=== PATIENT | male | born 1945 | race Caucasian/White ===

== ENCOUNTER 2017-03-24 13:40 | Emergency (ER) | payer MEDICARE, OTHER ==
[~2017-03-24] VITALS: Ht 190.5 cm; Wt 84.9 kg
[2017-03-24 13:42] VITALS: TEMP 97.6
[2017-03-24 14:39] LABS: MEAN CELL VOLUME 89 fl (80.0-100.0); MEAN CORPUSCULAR HGB CONC 36 g/dl (33.0-37.0); MEAN PLATELET VOLUME 13.1 fl (7.4-10.4); PLATELET COUNT 169 K/mm3 (130-400); REDCELL DISTRIBUTION WIDTH-CV 16.8 % (11.5-14.5)
[2017-03-24] MEDS ORDERED: NORVASC 10MG10 MG PO (14:39)
[2017-03-24] MEDS ORDERED: DYAZIDE 25 MG-31 CAP PO (14:39)
[2017-03-24 14:43] LABS: HEMATOCRIT 14.3 % (42.0-52.0); HEMOGLOBIN 5.1 g/dl (13.5-18.0); MEAN CORPUSCULAR HEMOGLOBIN 32 pg (27.0-31.0); WHITE BLOOD COUNT 202.7 K/mm3 (4.8-10.8)
[2017-03-24 14:46] LABS: ADJUSTED CALCIUM 9.5 mg/dL (8.4-10.2); ALBUMIN 3.5 gm/dL (3.5-5.0); BILIRUBIN,TOTAL 0.5 mg/dL (0.0-1.0); CALCIUM 9.1 mg/dL (8.4-10.2); CREATININE, serum 0.95 mg/dL (0.66-1.25); POTASSIUM 3.4 mmol/L (3.4-5.0); TOTAL PROTEIN 6.7 gm/dL (6.4-8.2)
[2017-03-24 15:15] LABS: METAMYELOCYTE 6 % (0-0); MYELOCYTE 10 % (0-0); NEUTROPHILS 36 % (42.0-75.2); PLATELET ESTIMATE NORMAL (NORMAL)
[2017-03-24 15:16] LABS: ANISOCYTOSIS 1+
[2017-03-24 15:18] LABS: BAND 38 % (0-10)
[2017-03-24 15:19] LABS: TOTAL CELLS COUNTED 100
[2017-03-24 16:08] VITALS: BP 106/68; PULSE 86
[2017-03-26 08:06] LABS: ADD PATHOLOGY DIFF REVIEW YES
== END 2017-03-24 16:08 | disposition home or self-care (01) ==
LOC: COL.ER 13:40
PROVIDERS: Emergency Medicine
DX: C92.20 Atypical chronic myeloid leukemia, BCR/ABL-negative, not having achieved remission (principal); C85.90 Non-Hodgkin lymphoma, unspecified, unspecified site; D63.0 Anemia in neoplastic disease; I10 Essential (primary) hypertension

== ENCOUNTER 2017-03-24 16:20 | Outpatient (CLI) | payer MEDICARE, OTHER ==
[2017-03-24] VITALS (13 sets, daily range): BP systolic 92–118; BP diastolic 42–60; PULSE 78–93; TEMP 97.9–98.2
[~2017-03-24] VITALS: Ht 190.5 cm; Wt 84.5 kg
[~2017-03-24 16:20] MED LIST: DYAZIDE 25 MG-31 CAP PO; NORVASC 10MG10 MG PO
[2017-03-25] VITALS (9 sets, daily range): BP systolic 98–122; BP diastolic 44–63; PULSE 71–87; TEMP 98.1–98.7
[2017-03-25 02:41] LABS: MEAN CELL VOLUME 89 fl (80.0-100.0); MEAN CORPUSCULAR HGB CONC 35 g/dl (33.0-37.0); MEAN PLATELET VOLUME 12.5 fl (7.4-10.4); PLATELET COUNT 131 K/mm3 (130-400); RED BLOOD COUNT 2.37 M/mm3 (4.20-5.60)
[2017-03-25 02:44] LABS: HEMATOCRIT 21.1 % (42.0-52.0); HEMOGLOBIN 7.4 g/dl (13.5-18.0); MEAN CORPUSCULAR HEMOGLOBIN 31 pg (27.0-31.0); WHITE BLOOD COUNT 171.9 K/mm3 (4.8-10.8)
== END 2017-03-25 06:00 | disposition home or self-care (01) ==
LOC: EUO 16:20
PROVIDERS: Emergency Medicine
DX: C92.10 Chronic myeloid leukemia, BCR/ABL-positive, not having achieved remission (principal); D64.9 Anemia, unspecified
CPT/HCPCS: J7050; P9016

== ENCOUNTER 2017-04-24 06:34 | Emergency (ER) | payer MEDICARE, OTHER ==
[~2017-04-24] VITALS: Ht 190.5 cm; Wt 83.2 kg
[2017-04-24] VITALS (21 sets, daily range): BP systolic 80–109; BP diastolic 40–71; PULSE 71–87; TEMP 97.4–98.7
[2017-04-24] MEDS ORDERED: ROXICODONE 55 MG/TAB PO (06:51)
[2017-04-24] MEDS ORDERED: COLACE 100100 MG/CAP PO (07:19)
[2017-04-24] MEDS ORDERED: ALKA-SELTZER HE1 TEF PO (07:20)
[2017-04-24 07:59] LABS: BASO # 0.7 (0.0-0.2); BASO % 0.3 % (0.0-2.0); EOS # 1.6 (0.0-0.7); EOS % 0.7 % (0-4.0); GRAN # 161.7 (1.4-6.5); GRAN % 66.7 % (42.2-75.2); LYMPH # 4.2 (1.2-3.4); LYMPH % 1.7 % (20.0-51.0); MEAN CELL VOLUME 90 fl (80.0-100.0); MEAN CORPUSCULAR HGB CONC 37 g/dl (33.0-37.0); MEAN PLATELET VOLUME 13.1 fl (7.4-10.4); MONO # 2.3 (0.1-0.6); MONO % 0.9 % (1.7-9.3); PLATELET COUNT 133 K/mm3 (130-400); RED BLOOD COUNT 1.27 M/mm3 (4.20-5.60); REDCELL DISTRIBUTION WIDTH-CV 17.1 % (11.5-14.5)
[2017-04-24 08:05] LABS: ADJUSTED CALCIUM 9.3 mg/dL (8.4-10.2); ALANINE AMINOTRANSFERASE 22 U/L (21-72); ALBUMIN 3.4 gm/dL (3.5-5.0); ALKALINE PHOSPHATASE 139 U/L (50-136); ANION GAP 10 mmol/L (7-16); BILIRUBIN,TOTAL 0.5 mg/dL (0.0-1.0); BLOOD UREA NITROGEN 14 mg/dL (9-20); CALCIUM 8.8 mg/dL (8.4-10.2); CARBON DIOXIDE 23 mmol/L (22-30); CHLORIDE 98 mmol/L (98-107); CREATININE, serum 1.06 mg/dL (0.66-1.25); GLUCOSE 166 mg/dL (74-106); POTASSIUM 3.2 mmol/L (3.4-5.0); SODIUM 132 mmol/L (137-145)
[2017-04-24 08:12] LABS: WHITE BLOOD COUNT 242.3 K/mm3 (4.8-10.8)
[2017-04-24 08:13] LABS: HEMOGLOBIN 4.2 g/dl (13.5-18.0); MEAN CORPUSCULAR HEMOGLOBIN 33 pg (27.0-31.0)
[2017-04-24 08:14] LABS: HEMATOCRIT 11.4 % (42.0-52.0)
[2017-04-24 08:26] LABS: TROPONIN-I < 0.012 ng/mL (0.000-0.034)
[2017-04-24 08:50] LABS: BAND 27 % (0-10); METAMYELOCYTE 2 % (0-0); MYELOCYTE 7 % (0-0); NEUTROPHILS 44 % (42.0-75.2); TOTAL CELLS COUNTED 100
[2017-04-24 08:51] LABS: PLATELET ESTIMATE NORMAL (NORMAL)
[2017-04-24 08:52] LABS: ANISOCYTOSIS 1+
[2017-04-24 08:54] LABS: DOHLE BODIES PRESENT
[2017-04-24 08:55] LABS: ADD PATHOLOGY DIFF REVIEW YES
[2017-04-24 10:16] LABS: PATHOLOGY DIFF REVIEW OK +
[2017-04-24 16:34] LABS: PH 5 (5-8); SQUAMOUS EPITHELIAL 0-2 /hpf; URINE APPEARANCE Turbid; URINE BACTERIA Rare /hpf; URINE BILIRUBIN Negative (NEGATIVE); URINE BLOOD 1+ (NEGATIVE); URINE COLOR Amber; URINE GLUCOSE Negative (NEGATIVE); URINE KETONE Negative (NEGATIVE); URINE RBC 20-50 /hpf; URINE UROBILINOGEN Negative (NEGATIVE)
[2017-04-24 16:52] LABS: URINE WBC >50 /hpf
[2017-04-24] MEDS ORDERED: CIPRO 500MG TA500 MG PO (18:34)
== END 2017-04-24 19:44 | disposition home or self-care (01) ==
LOC: COL.ER 06:34
PROVIDERS: Emergency Medicine
DX: R53.81 Other malaise (principal); R10.11 Right upper quadrant pain; R11.2 Nausea with vomiting, unspecified; I10 Essential (primary) hypertension; Z85.72 Personal history of non-Hodgkin lymphomas; Z85.6 Personal history of leukemia
CPT/HCPCS: J2405; J7030; J7050; P9016

== ENCOUNTER 2017-05-06 06:52 | Emergency (ER) | payer MEDICARE, OTHER ==
[~2017-05-06] VITALS: Ht 188 cm; Wt 84.5 kg
[~2017-05-06 06:52] MED LIST changes: +ALKA-SELTZER HE1 TEF PO; +CIPRO 500MG TA500 MG PO; +COLACE 100100 MG/CAP PO; +ROXICODONE 55 MG/TAB PO
[2017-05-06 07:43] LABS: MEAN CELL VOLUME 94 fl (80.0-100.0); MEAN CORPUSCULAR HGB CONC 35 g/dl (33.0-37.0); MEAN PLATELET VOLUME 13.3 fl (7.4-10.4); PLATELET COUNT 98 K/mm3 (130-400); RED BLOOD COUNT 2.11 M/mm3 (4.20-5.60)
[2017-05-06 07:53] LABS: HEMATOCRIT 19.8 % (42.0-52.0); MEAN CORPUSCULAR HEMOGLOBIN 33 pg (27.0-31.0)
[2017-05-06 07:54] LABS: ADD PATHOLOGY DIFF REVIEW NO
[2017-05-06 08:06] LABS: ADJUSTED CALCIUM 8.9 mg/dL (8.4-10.2); ALBUMIN 3.8 gm/dL (3.5-5.0); BILIRUBIN,TOTAL 0.5 mg/dL (0.0-1.0); CALCIUM 8.7 mg/dL (8.4-10.2); CREATININE, serum 0.83 mg/dL (0.66-1.25); POTASSIUM 3.6 mmol/L (3.4-5.0); TOTAL PROTEIN 6.7 gm/dL (6.4-8.2)
[2017-05-06 08:32] LABS: INR 1.2 (0.8-3.0); PROTHROMBIN TIME 13.3 SECONDS (9.7-12.8)
[2017-05-06 08:35] LABS: PARTIAL THROMBOPLASTIN TIME 31.9 SECONDS (26.0-37.0)
[2017-05-06 08:53] LABS: PH 5 (5-8); SQUAMOUS EPITHELIAL 0-2 /hpf; URINE APPEARANCE Hazy; URINE BACTERIA Rare /hpf; URINE BILIRUBIN Negative (NEGATIVE); URINE BLOOD 1+ (NEGATIVE); URINE COLOR Yellow; URINE GLUCOSE Negative (NEGATIVE); URINE KETONE Negative (NEGATIVE)
[2017-05-06 09:07] LABS: BAND 26 % (0-10); EOSINOPHIL 1 % (0-4); METAMYELOCYTE 9 % (0-0); MYELOCYTE 27 % (0-0)
[2017-05-06 09:08] LABS: NEUTROPHILS 34 % (42.0-75.2); PLATELET ESTIMATE DECREASED (NORMAL); TOTAL CELLS COUNTED 100
[2017-05-06 10:56] VITALS: BP 117/74; PULSE 84; TEMP 97.5
[2017-05-06 11:11] VITALS: BP 124/77; PULSE 80; TEMP 97.1
[2017-05-06 11:41] VITALS: BP 107/97; PULSE 80; TEMP 97
[2017-05-06 12:41] VITALS: BP 108/70; PULSE 89; TEMP 97.2
[2017-05-06 14:07] VITALS: BP 101/54; PULSE 85; TEMP 97.2
== END 2017-05-06 14:07 | disposition home or self-care (01) ==
LOC: COL.ER 06:52
PROVIDERS: Emergency Medicine
DX: C92.10 Chronic myeloid leukemia, BCR/ABL-positive, not having achieved remission (principal); D63.0 Anemia in neoplastic disease; C94.6 Myelodysplastic disease, not elsewhere classified; I10 Essential (primary) hypertension; Z51.5 Encounter for palliative care; D69.6 Thrombocytopenia, unspecified
CPT/HCPCS: P9016

== ENCOUNTER 2017-06-01 08:33 | Outpatient (RCR) | payer MEDICARE, OTHER ==
[2017-06-01] VITALS (13 sets, daily range): BP systolic 98–130; BP diastolic 51–68; PULSE 74–86; TEMP 97.8–99.1
[~2017-06-01] VITALS: Ht 190.5 cm; Wt 84.5 kg
== END 2017-06-01 16:24 | disposition home or self-care (01) ==
LOC: EUO 08:33
DX: C92.10 Chronic myeloid leukemia, BCR/ABL-positive, not having achieved remission (principal)
CPT/HCPCS: J1644; J7040; P9016

== ENCOUNTER 2017-06-30 07:00 | Outpatient (RCR) | payer MEDICARE, OTHER ==
[2017-06-15] VITALS (10 sets, daily range): BP systolic 105–126; BP diastolic 45–68; PULSE 79–85; TEMP 97.2–98.5
[2017-06-15 07:35] LABS: MEAN CELL VOLUME 96 fl (80.0-100.0); MEAN CORPUSCULAR HGB CONC 34 g/dl (33.0-37.0); MEAN PLATELET VOLUME 13.4 fl (7.4-10.4); PLATELET COUNT 146 K/mm3 (130-400); RED BLOOD COUNT 1.94 M/mm3 (4.20-5.60); REDCELL DISTRIBUTION WIDTH-CV 18.3 % (11.5-14.5)
[2017-06-15 07:38] LABS: HEMATOCRIT 18.6 % (42.0-52.0); HEMOGLOBIN 6.4 g/dl (13.5-18.0); MEAN CORPUSCULAR HEMOGLOBIN 33 pg (27.0-31.0)
[2017-06-15 11:19] LABS: MEAN CELL VOLUME 96 fl (80.0-100.0); MEAN CORPUSCULAR HGB CONC 35 g/dl (33.0-37.0); MEAN PLATELET VOLUME 13.4 fl (7.4-10.4); PLATELET COUNT 139 K/mm3 (130-400); REDCELL DISTRIBUTION WIDTH-CV 17.7 % (11.5-14.5)
[2017-06-15 11:21] LABS: HEMATOCRIT 20.1 % (42.0-52.0); MEAN CORPUSCULAR HEMOGLOBIN 33 pg (27.0-31.0)
[~2017-06-30] VITALS: Ht 190.5 cm; Wt 84.5 kg
[2017-06-30 07:51] VITALS: BP 92/59; PULSE 157; TEMP 97.5
[2017-06-30 07:57] LABS: MEAN CELL VOLUME 98 fl (80.0-100.0); MEAN CORPUSCULAR HGB CONC 34 g/dl (33.0-37.0); MEAN PLATELET VOLUME 13.7 fl (7.4-10.4); PLATELET COUNT 155 K/mm3 (130-400); RED BLOOD COUNT 2.17 M/mm3 (4.20-5.60); REDCELL DISTRIBUTION WIDTH-CV 18.6 % (11.5-14.5)
[2017-06-30 07:59] LABS: HEMATOCRIT 21.2 % (42.0-52.0); HEMOGLOBIN 7.1 g/dl (13.5-18.0); MEAN CORPUSCULAR HEMOGLOBIN 33 pg (27.0-31.0)
== END 2017-07-14 09:07 | disposition home or self-care (01) ==
LOC: EUO 07:00
PROVIDERS: Family Medicine
DX: C92.10 Chronic myeloid leukemia, BCR/ABL-positive, not having achieved remission (principal)
CPT/HCPCS: P9016

== ENCOUNTER 2017-07-21 11:18 | Outpatient (RCR) | payer MEDICARE, OTHER ==
[2017-07-21] VITALS (9 sets, daily range): BP systolic 107–130; BP diastolic 56–74; PULSE 62–71; TEMP 97.4–98.6
[2017-07-21 07:55] LABS: MEAN CELL VOLUME 100 fl (80.0-100.0); MEAN CORPUSCULAR HGB CONC 34 g/dl (33.0-37.0); MEAN PLATELET VOLUME 12.9 fl (7.4-10.4); PLATELET COUNT 152 K/mm3 (130-400); RED BLOOD COUNT 1.69 M/mm3 (4.20-5.60); REDCELL DISTRIBUTION WIDTH-CV 19.9 % (11.5-14.5)
[2017-07-21 08:02] LABS: HEMATOCRIT 16.9 % (42.0-52.0); HEMOGLOBIN 5.8 g/dl (13.5-18.0); MEAN CORPUSCULAR HEMOGLOBIN 34 pg (27.0-31.0)
[2017-07-21 11:33] LABS: MEAN CELL VOLUME 98 fl (80.0-100.0); MEAN CORPUSCULAR HGB CONC 34 g/dl (33.0-37.0); MEAN PLATELET VOLUME 12.8 fl (7.4-10.4); PLATELET COUNT 156 K/mm3 (130-400); RED BLOOD COUNT 1.84 M/mm3 (4.20-5.60); REDCELL DISTRIBUTION WIDTH-CV 19.2 % (11.5-14.5)
[2017-07-21 11:39] LABS: HEMOGLOBIN 6.1 g/dl (13.5-18.0); MEAN CORPUSCULAR HEMOGLOBIN 33 pg (27.0-31.0)
== END 2017-07-31 10:59 | disposition home or self-care (01) ==
LOC: EUO 11:18
PROVIDERS: Family Medicine
DX: C92.10 Chronic myeloid leukemia, BCR/ABL-positive, not having achieved remission (principal); Z95.9 Presence of cardiac and vascular implant and graft, unspecified
CPT/HCPCS: J7050; P9016

== ENCOUNTER 2017-08-25 07:00 | Outpatient (RCR) | payer OTHER, MEDICARE ==
[2017-08-07 07:34] LABS: MEAN CELL VOLUME 97 fl (80.0-100.0); MEAN CORPUSCULAR HGB CONC 34 g/dl (33.0-37.0); MEAN PLATELET VOLUME 13.1 fl (7.4-10.4); PLATELET COUNT 194 K/mm3 (130-400); RED BLOOD COUNT 2.03 M/mm3 (4.20-5.60); REDCELL DISTRIBUTION WIDTH-CV 19.6 % (11.5-14.5)
[2017-08-07 07:36] LABS: HEMATOCRIT 19.7 % (42.0-52.0); HEMOGLOBIN 6.7 g/dl (13.5-18.0); MEAN CORPUSCULAR HEMOGLOBIN 33 pg (27.0-31.0)
[2017-08-07 09:00] VITALS: BP 120/65; PULSE 74; TEMP 98
[2017-08-07 09:15] VITALS: BP 113/63; PULSE 72; TEMP 98.1
[2017-08-07 09:30] VITALS: BP 113/66; PULSE 70; TEMP 98.2
[2017-08-07 10:00] VITALS: BP 116/62; PULSE 75; TEMP 97.9
[2017-08-07 10:30] VITALS: BP 114/67; PULSE 77; TEMP 97.9
[2017-08-07 11:16] LABS: HEMATOCRIT 20.6 % (42.0-52.0); HEMOGLOBIN 7.1 g/dl (13.5-18.0)
[~2017-08-25] VITALS: Ht 190.5 cm; Wt 84.5 kg
[2017-08-25] VITALS (8 sets, daily range): BP systolic 100–121; BP diastolic 60–86; PULSE 66–71; TEMP 97.2–98.6
[2017-08-25 08:01] LABS: MEAN CELL VOLUME 98 fl (80.0-100.0); MEAN CORPUSCULAR HGB CONC 34 g/dl (33.0-37.0); MEAN PLATELET VOLUME 13.4 fl (7.4-10.4); PLATELET COUNT 168 K/mm3 (130-400); RED BLOOD COUNT 1.91 M/mm3 (4.20-5.60); REDCELL DISTRIBUTION WIDTH-CV 20.6 % (11.5-14.5)
[2017-08-25 08:04] LABS: HEMATOCRIT 18.8 % (42.0-52.0); HEMOGLOBIN 6.3 g/dl (13.5-18.0); MEAN CORPUSCULAR HEMOGLOBIN 33 pg (27.0-31.0)
[2017-08-25 11:58] LABS: MEAN CELL VOLUME 98 fl (80.0-100.0); MEAN CORPUSCULAR HGB CONC 33 g/dl (33.0-37.0); MEAN PLATELET VOLUME 12.8 fl (7.4-10.4); PLATELET COUNT 160 K/mm3 (130-400); RED BLOOD COUNT 2.12 M/mm3 (4.20-5.60); REDCELL DISTRIBUTION WIDTH-CV 19.2 % (11.5-14.5)
[2017-08-25 11:59] LABS: HEMATOCRIT 20.8 % (42.0-52.0); HEMOGLOBIN 6.9 g/dl (13.5-18.0); MEAN CORPUSCULAR HEMOGLOBIN 33 pg (27.0-31.0)
== END 2017-08-25 15:57 | disposition home or self-care (01) ==
LOC: EUO 07:00
PROVIDERS: Family Medicine
DX: C92.10 Chronic myeloid leukemia, BCR/ABL-positive, not having achieved remission (principal)
CPT/HCPCS: J1644; J7050; P9016

== ENCOUNTER 2017-11-24 07:30 | Outpatient (RCR) | payer OTHER, MEDICARE ==
[2017-09-08 07:48] LABS: MEAN CELL VOLUME 97 fl (80.0-100.0); MEAN CORPUSCULAR HGB CONC 32 g/dl (33.0-37.0); MEAN PLATELET VOLUME 13.5 fl (7.4-10.4); PLATELET COUNT 201 K/mm3 (130-400); RED BLOOD COUNT 2.32 M/mm3 (4.20-5.60); REDCELL DISTRIBUTION WIDTH-CV 20.3 % (11.5-14.5)
[2017-09-08 07:50] VITALS: BP 111/67; PULSE 77
[2017-09-08 07:50] LABS: HEMATOCRIT 22.6 % (42.0-52.0); HEMOGLOBIN 7.3 g/dl (13.5-18.0); MEAN CORPUSCULAR HEMOGLOBIN 31 pg (27.0-31.0)
[2017-09-16 08:00] VITALS: BP 124/75; PULSE 76; TEMP 98.3
[2017-09-16 08:04] LABS: MEAN CELL VOLUME 97 fl (80.0-100.0); MEAN CORPUSCULAR HGB CONC 33 g/dl (33.0-37.0); MEAN PLATELET VOLUME 13.5 fl (7.4-10.4); PLATELET COUNT 167 K/mm3 (130-400); RED BLOOD COUNT 2.18 M/mm3 (4.20-5.60); REDCELL DISTRIBUTION WIDTH-CV 20.4 % (11.5-14.5)
[2017-09-16 08:07] LABS: HEMOGLOBIN 6.9 g/dl (13.5-18.0); MEAN CORPUSCULAR HEMOGLOBIN 32 pg (27.0-31.0)
[2017-09-16 08:08] LABS: HEMATOCRIT 21.1 % (42.0-52.0)
[2017-09-16 09:20] VITALS: BP 134/75; PULSE 75; TEMP 98.2
[2017-09-16 09:40] VITALS: BP 114/60; PULSE 75; TEMP 98.7
[2017-09-16 09:55] VITALS: BP 114/63; PULSE 74; TEMP 98.9
[2017-09-16 10:25] VITALS: BP 118/66; PULSE 86; TEMP 98.7
[2017-09-16 11:05] VITALS: BP 110/78; PULSE 82; TEMP 99.3
[2017-09-16 12:06] LABS: MEAN CELL VOLUME 97 fl (80.0-100.0); MEAN CORPUSCULAR HGB CONC 33 g/dl (33.0-37.0); MEAN PLATELET VOLUME 13.4 fl (7.4-10.4); PLATELET COUNT 192 K/mm3 (130-400); RED BLOOD COUNT 2.33 M/mm3 (4.20-5.60); REDCELL DISTRIBUTION WIDTH-CV 19.9 % (11.5-14.5)
[2017-09-16 12:17] LABS: HEMATOCRIT 22.7 % (42.0-52.0); HEMOGLOBIN 7.5 g/dl (13.5-18.0); MEAN CORPUSCULAR HEMOGLOBIN 32 pg (27.0-31.0)
[2017-10-05 08:37] VITALS: BP 110/78; PULSE 82; TEMP 99.3
[2017-10-05 08:45] LABS: MEAN CELL VOLUME 99 fl (80.0-100.0); MEAN CORPUSCULAR HGB CONC 33 g/dl (33.0-37.0); MEAN PLATELET VOLUME 13.6 fl (7.4-10.4); PLATELET COUNT 173 K/mm3 (130-400); RED BLOOD COUNT 2.07 M/mm3 (4.20-5.60); REDCELL DISTRIBUTION WIDTH-CV 21.6 % (11.5-14.5)
[2017-10-05 08:47] LABS: HEMATOCRIT 20.4 % (42.0-52.0); HEMOGLOBIN 6.7 g/dl (13.5-18.0); MEAN CORPUSCULAR HEMOGLOBIN 32 pg (27.0-31.0)
[2017-10-05 09:47] VITALS: BP 90/50; PULSE 66; TEMP 98
[2017-10-05 10:03] VITALS: BP 81/41; PULSE 85; TEMP 98
[2017-10-05 10:31] VITALS: BP 111/52; PULSE 80; TEMP 98
[2017-10-05 12:12] LABS: MEAN CELL VOLUME 97 fl (80.0-100.0); MEAN CORPUSCULAR HGB CONC 34 g/dl (33.0-37.0); MEAN PLATELET VOLUME 13.4 fl (7.4-10.4); PLATELET COUNT 187 K/mm3 (130-400); RED BLOOD COUNT 2.34 M/mm3 (4.20-5.60)
[2017-10-05 12:19] LABS: HEMATOCRIT 22.7 % (42.0-52.0); HEMOGLOBIN 7.7 g/dl (13.5-18.0); MEAN CORPUSCULAR HEMOGLOBIN 33 pg (27.0-31.0)
[2017-10-23 08:27] LABS: MEAN CELL VOLUME 98 fl (80.0-100.0); MEAN CORPUSCULAR HGB CONC 33 g/dl (33.0-37.0); MEAN PLATELET VOLUME 13.5 fl (7.4-10.4); PLATELET COUNT 187 K/mm3 (130-400); RED BLOOD COUNT 2.11 M/mm3 (4.20-5.60); REDCELL DISTRIBUTION WIDTH-CV 22.1 % (11.5-14.5)
[2017-10-23 08:31] LABS: HEMATOCRIT 20.6 % (42.0-52.0); HEMOGLOBIN 6.8 g/dl (13.5-18.0); MEAN CORPUSCULAR HEMOGLOBIN 32 pg (27.0-31.0)
[2017-10-23 10:02] VITALS: BP 110/55; PULSE 79; TEMP 98
[2017-10-23 10:10] VITALS: BP 110/55; PULSE 79; TEMP 98
[2017-10-23 10:24] VITALS: BP 117/59; PULSE 75; TEMP 97.7
[2017-10-23 10:50] VITALS: BP 112/62; PULSE 72; TEMP 96.7
[2017-10-23 13:22] LABS: MEAN CELL VOLUME 98 fl (80.0-100.0); MEAN CORPUSCULAR HGB CONC 33 g/dl (33.0-37.0); MEAN PLATELET VOLUME 13.5 fl (7.4-10.4); PLATELET COUNT 194 K/mm3 (130-400); RED BLOOD COUNT 2.43 M/mm3 (4.20-5.60); REDCELL DISTRIBUTION WIDTH-CV 20.8 % (11.5-14.5)
[2017-10-23 13:24] LABS: HEMATOCRIT 23.9 % (42.0-52.0); HEMOGLOBIN 7.9 g/dl (13.5-18.0); MEAN CORPUSCULAR HEMOGLOBIN 33 pg (27.0-31.0)
[2017-11-06 08:01] LABS: MEAN CELL VOLUME 96 fl (80.0-100.0); MEAN CORPUSCULAR HGB CONC 33 g/dl (33.0-37.0); MEAN PLATELET VOLUME 12.8 fl (7.4-10.4); PLATELET COUNT 190 K/mm3 (130-400); REDCELL DISTRIBUTION WIDTH-CV 21.2 % (11.5-14.5)
[2017-11-06 08:07] LABS: HEMATOCRIT 21.1 % (42.0-52.0); HEMOGLOBIN 6.9 g/dl (13.5-18.0); MEAN CORPUSCULAR HEMOGLOBIN 31 pg (27.0-31.0)
[2017-11-06 09:50] VITALS: BP 96/53; PULSE 75; TEMP 98.2
[2017-11-06 10:09] VITALS: BP 102/64; PULSE 78; TEMP 98
[2017-11-06 10:24] VITALS: BP 101/56; PULSE 74; TEMP 97.4
[2017-11-06 10:54] VITALS: BP 105/57; PULSE 72; TEMP 97.5
[2017-11-06 11:42] VITALS: BP 101/57; PULSE 67; TEMP 98.2
[2017-11-06 12:31] LABS: MEAN CELL VOLUME 96 fl (80.0-100.0); MEAN CORPUSCULAR HGB CONC 34 g/dl (33.0-37.0); MEAN PLATELET VOLUME 13.2 fl (7.4-10.4); PLATELET COUNT 205 K/mm3 (130-400); RED BLOOD COUNT 2.45 M/mm3 (4.20-5.60)
[2017-11-06 12:34] LABS: HEMATOCRIT 23.6 % (42.0-52.0); HEMOGLOBIN 7.9 g/dl (13.5-18.0); MEAN CORPUSCULAR HEMOGLOBIN 32 pg (27.0-31.0)
[~2017-11-24] VITALS: Ht 190.5 cm; Wt 89.0 kg
[2017-11-24 07:52] LABS: MEAN CELL VOLUME 92 fl (80.0-100.0); MEAN CORPUSCULAR HGB CONC 35 g/dl (33.0-37.0); MEAN PLATELET VOLUME 13.4 fl (7.4-10.4); PLATELET COUNT 209 K/mm3 (130-400); RED BLOOD COUNT 2.22 M/mm3 (4.20-5.60); REDCELL DISTRIBUTION WIDTH-CV 21.1 % (11.5-14.5)
[2017-11-24 08:07] LABS: HEMATOCRIT 20.5 % (42.0-52.0); HEMOGLOBIN 7.1 g/dl (13.5-18.0); MEAN CORPUSCULAR HEMOGLOBIN 32 pg (27.0-31.0)
[2017-11-24 09:23] VITALS: BP 99/51; PULSE 79; TEMP 98.6
[2017-11-24 09:43] VITALS: BP 109/61; PULSE 79; TEMP 97.6
[2017-11-24 09:58] VITALS: BP 104/57; PULSE 77; TEMP 97.9
[2017-11-24 10:28] VITALS: BP 105/58; PULSE 75; TEMP 98.4
[2017-11-24 11:26] VITALS: BP 99/57; PULSE 77; TEMP 99.3
== END 2017-12-07 | disposition home or self-care (01) ==
LOC: EUO
PROVIDERS: Family Medicine
DX: C92.10 Chronic myeloid leukemia, BCR/ABL-positive, not having achieved remission (principal); Z45.2 Encounter for adjustment and management of vascular access device
CPT/HCPCS: J1644; J7050; P9016

== ENCOUNTER 2018-01-26 07:30 | Outpatient (RCR) | payer OTHER, MEDICARE ==
[2017-12-11 08:24] LABS: MEAN CELL VOLUME 92 fl (80.0-100.0); MEAN CORPUSCULAR HGB CONC 34 g/dl (33.0-37.0); MEAN PLATELET VOLUME 12.9 fl (7.4-10.4); PLATELET COUNT 219 K/mm3 (130-400); RED BLOOD COUNT 2.32 M/mm3 (4.20-5.60); REDCELL DISTRIBUTION WIDTH-CV 21.4 % (11.5-14.5)
[2017-12-11 08:32] LABS: HEMATOCRIT 21.4 % (42.0-52.0); HEMOGLOBIN 7.3 g/dl (13.5-18.0); MEAN CORPUSCULAR HEMOGLOBIN 31 pg (27.0-31.0)
[2017-12-11 09:56] LABS: ALBUMIN 3.3 gm/dL (3.5-5.0); BILIRUBIN,TOTAL 0.7 mg/dL (0.0-1.0); CALCIUM 8.8 mg/dL (8.4-10.2); CREATININE, serum 1.03 mg/dL (0.66-1.25); POTASSIUM 3.9 mmol/L (3.4-5.0); TOTAL PROTEIN 6.5 gm/dL (6.4-8.2)
[2017-12-11 11:38] VITALS: BP 113/62; PULSE 82; TEMP 98.6
[2017-12-11 11:59] VITALS: BP 103/57; PULSE 74; TEMP 97.6
[2017-12-11 12:14] VITALS: BP 107/57; PULSE 70; TEMP 98.9
[2017-12-11 12:44] VITALS: BP 108/63; PULSE 77; TEMP 98.9
[2017-12-11 13:30] VITALS: BP 119/64; PULSE 78; TEMP 98
[2017-12-29 08:19] LABS: MEAN CELL VOLUME 95 fl (80.0-100.0); MEAN CORPUSCULAR HGB CONC 32 g/dl (33.0-37.0); MEAN PLATELET VOLUME 12.6 fl (7.4-10.4); PLATELET COUNT 205 K/mm3 (130-400); RED BLOOD COUNT 2.38 M/mm3 (4.20-5.60); REDCELL DISTRIBUTION WIDTH-CV 22.7 % (11.5-14.5)
[2017-12-29 08:24] LABS: HEMATOCRIT 22.7 % (42.0-52.0); HEMOGLOBIN 7.3 g/dl (13.5-18.0); MEAN CORPUSCULAR HEMOGLOBIN 31 pg (27.0-31.0)
[2017-12-29 10:38] VITALS: BP 100/59; PULSE 75; TEMP 98
[2017-12-29 11:00] VITALS: BP 107/61; PULSE 81; TEMP 98.4
[2017-12-29 11:15] VITALS: BP 104/63; PULSE 77; TEMP 98.8
[2017-12-29 11:45] VITALS: BP 109/65; PULSE 83; TEMP 98.8
[2017-12-29 12:28] VITALS: BP 113/57; PULSE 85; TEMP 98.4
[2018-01-12 08:12] VITALS: BP 101/59; PULSE 80; TEMP 98.1
[2018-01-12 08:31] LABS: MEAN CELL VOLUME 95 fl (80.0-100.0); MEAN CORPUSCULAR HGB CONC 33 g/dl (33.0-37.0); MEAN PLATELET VOLUME 12.3 fl (7.4-10.4); PLATELET COUNT 212 K/mm3 (130-400); RED BLOOD COUNT 2.53 M/mm3 (4.20-5.60); REDCELL DISTRIBUTION WIDTH-CV 22.6 % (11.5-14.5)
[2018-01-12 08:41] LABS: MEAN CORPUSCULAR HEMOGLOBIN 32 pg (27.0-31.0)
[2018-01-12 10:05] VITALS: BP 116/65; PULSE 93; TEMP 98.3
[2018-01-12 10:21] VITALS: BP 103/61; PULSE 90; TEMP 98.2
[2018-01-12 10:36] VITALS: BP 106/60; PULSE 85; TEMP 98
[2018-01-12 11:06] VITALS: BP 95/69; PULSE 79; TEMP 98.4
[2018-01-12 11:52] VITALS: BP 117/72; PULSE 75; TEMP 97.9
[~2018-01-26] VITALS: Ht 190.5 cm; Wt 86.0 kg
[2018-01-26 08:34] LABS: MEAN CELL VOLUME 95 fl (80.0-100.0); MEAN CORPUSCULAR HGB CONC 35 g/dl (33.0-37.0); PLATELET COUNT 176 K/mm3 (130-400); RED BLOOD COUNT 2.37 M/mm3 (4.20-5.60)
[2018-01-26 08:35] VITALS: BP 93/45; PULSE 71; TEMP 98
[2018-01-26 08:39] LABS: HEMATOCRIT 22.5 % (42.0-52.0); HEMOGLOBIN 7.8 g/dl (13.5-18.0); MEAN CORPUSCULAR HEMOGLOBIN 33 pg (27.0-31.0)
[2018-01-26 09:50] VITALS: BP 75/51; PULSE 130; TEMP 98
[2018-01-26 10:06] VITALS: BP 78/59; PULSE 135; TEMP 97.3
[2018-01-26 10:40] VITALS: BP 95/65; PULSE 72; TEMP 96.8
[2018-01-26 11:15] VITALS: BP 97/50; PULSE 70; TEMP 96.8
[2018-01-26 11:51] VITALS: BP 97/54; PULSE 77; TEMP 96.5
[2018-01-26 12:27] LABS: MEAN CELL VOLUME 95 fl (80.0-100.0); MEAN CORPUSCULAR HGB CONC 34 g/dl (33.0-37.0); MEAN PLATELET VOLUME 12.6 fl (7.4-10.4); PLATELET COUNT 172 K/mm3 (130-400); RED BLOOD COUNT 2.54 M/mm3 (4.20-5.60); REDCELL DISTRIBUTION WIDTH-CV 22.9 % (11.5-14.5)
[2018-01-26 12:38] LABS: HEMOGLOBIN 8.1 g/dl (13.5-18.0); MEAN CORPUSCULAR HEMOGLOBIN 32 pg (27.0-31.0)
[2018-01-26 13:37] LABS: BAND 36 % (0-10); EOSINOPHIL 0 % (0-4); LYMPHOCYTE 0 % (20.0-51.0); METAMYELOCYTE 3 % (0-0); MYELOCYTE 17 % (0-0); NEUTROPHILS 33 % (42.0-75.2); NUCLEATED RED BLOOD CELL 20 (0-6); PLATELET ESTIMATE NORMAL (NORMAL)
[2018-01-27 08:49] LABS: PATHOLOGY DIFF REVIEW OK +
== END 2018-02-26 13:57 | disposition home or self-care (01) ==
LOC: EUO 07:30
PROVIDERS: Family Medicine; Internal Medicine Cardiovascular Disease
DX: C92.10 Chronic myeloid leukemia, BCR/ABL-positive, not having achieved remission (principal); Z95.9 Presence of cardiac and vascular implant and graft, unspecified
CPT/HCPCS: J1644; J7050; P9016